=== PATIENT | male | born 1945 | race Caucasian/White ===

== ENCOUNTER → 2017-04-21 | Outpatient (REF) | payer MEDICARE, OTHER ==
[2017-04-22 13:47] LABS: CONTROL LINE HPYORI INT CTR LINE PRESENT
== END ==
LOC: M LAB REF 15:07
PROVIDERS: ATTEND Nurse Practitioner Family
DX: R14.0 Abdominal distension (gaseous) (principal)

== ENCOUNTER 2017-09-17 10:43 | Day surgery (SDC) | payer MEDICARE, BC ==
[~2017-09-17] VITALS: Ht 170.2 cm; Wt 93.0 kg
[~2017-09-17 10:43] MED LIST: ATOR1TAB21 PO; CELE1CAP9 PO; LISI-538 PO; PANT40TA2 PO; PARO20TA3 PO; PROPOFOL 200 MG/20 ML VIAL As Ordered ONE
[2017-09-17] MEDS ORDERED: NS 500 ML IV ONE (11:15)
--- NOTE | 2017-09-17 11:54 | ROOR ---
Patient Name: Kobe Ling Procedure Date: 09/17/2017 11:36 AM Date of : 1945 Age: 72 Room: [facility] Gender: Male Note Status: Finalized Procedure: Total Colonoscopy to Cecum Indications: Screening for colorectal malignant neoplasm Providers: Richie Chin MD Referring MD: MARCELO HERRERA JR, MD Requesting Provider: Medicines: Monitored Anesthesia Care Complications: No immediate complications. Procedure: Pre-Anesthesia Assessment: - The heart rate, respiratory rate, oxygen saturations, blood pressure, adequacy of pulmonary ventilation, and response to care were monitored throughout the procedure. The Colonoscope was introduced through the anus and advanced to the cecum, identified by appendiceal orifice and ileocecal valve. The colonoscopy was performed without difficulty. The patient tolerated the procedure well. The quality of the bowel preparation was excellent. Findings: The perianal and digital rectal examinations were normal. Non-bleeding internal hemorrhoids were found during retroflexion. The hemorrhoids were small and Grade I (internal hemorrhoids that do not prolapse). The exam was otherwise without abnormality on direct and retroflexion views. Impression: - Non-bleeding internal hemorrhoids. - The examination was otherwise normal on direct and retroflexion views. - No specimens collected. - The exam was otherwise normal to the cecum. Recommendation: - Patient has a contact number available for emergencies. The signs and symptoms of potential delayed complications were discussed with the patient. Return to normal activities tomorrow. Written discharge instructions were provided to the patient. - High fiber diet. - Discharge patient to home. - Continue present medications. - Repeat colonoscopy Repeat for symptoms only. for screening purposes. - Return to referring physician. - The findings and recommendations were discussed with the patient's family. Richie Chin MD Richie Chin MD 09/17/2017 11:53:24 AM This report has been signed electronically. Number of Addenda: 0 Note Initiated On: 09/17/2017 11:36 AM Estimated Blood Loss: Estimated blood loss: none.
[2017-09-17 12:24] VITALS: BP 153/74
== END 2017-09-17 12:27 | disposition home or self-care (01) ==
LOC: M OPP 10:43 → EDSTATUS 11:45 → M OPP 12:27
PROVIDERS: ATTEND Internal Medicine Gastroenterology
DX: Z12.11 Encounter for screening for malignant neoplasm of colon (principal); K64.0 First degree hemorrhoids; I10 Essential (primary) hypertension; E78.5 Hyperlipidemia, unspecified; Z96.652 Presence of left artificial knee joint; Z87.891 Personal history of nicotine dependence; Z79.899 Other long term (current) drug therapy

== ENCOUNTER → 2018-08-11 | Outpatient (REF) | payer MEDICARE, BC ==
[2018-08-11 20:00] LABS: GAMMA GLUTAMYLTRANSPEPTIDASE 126 U/L (15-85)
== END ==
LOC: M LAB REF 17:12
DX: R74.8 Abnormal levels of other serum enzymes (principal)
CPT/HCPCS: 82977

== ENCOUNTER → 2020-11-30 | Outpatient (CLI) | payer MEDICARE, BC ==
[~2020-11-30] MED LIST changes: -PANT40TA2 PO; +PANT40TA29 PO; -PROPOFOL 200 MG/20 ML VIAL As Ordered ONE
== END ==
LOC: M LABSMTC 11:20
PROVIDERS: ATTEND Orthopaedic Surgery
DX: Z01.812 Encounter for preprocedural laboratory examination (principal); Z20.828 Contact with and (suspected) exposure to other viral communicable diseases

== ENCOUNTER → 2021-11-20 | Outpatient (REF) | payer MEDICARE, BC ==
[~2021-11-20] MED LIST changes: -LISI-538 PO; +LISI20TA33 PO
[2021-11-20 17:17] LABS: APPEARANCE, URINE CLEAR (CLEAR); BACTERIA, URINE AUTO NEGATIVE (NEGATIVE); BILIRUBIN, URINE AUTO NEGATIVE (NEGATIVE); BLOOD, URINE BLOOD NEGATIVE (NEGATIVE); COLOR, URINE YELLOW (YELLOW); GLUCOSE, URINE (UA) AUTO NEGATIVE (NEGATIVE); KETONE, URINE AUTO NEGATIVE (NEGATIVE); LEUKOCYTE ESTERASE, URINE AUTO NEGATIVE (NEGATIVE); NITRITE, URINE AUTO NEGATIVE (NEGATIVE); PROTEIN, URINE AUTO NEGATIVE (NEGATIVE); RBC, URINE AUTO 0 /HPF (0-3); SPECIFIC GRAVITY URINE AUTO 1.018 (1.002-1.035); SQUAMOUS EPITHELIAL CELL UR AU 0 /HPF (0-6); UROBILINOGEN, URINE AUTO 0.2 mg/dL (0.0-2.0); WBC, URINE AUTO 0 /HPF (0-3)
== END ==
LOC: M LAB REF 16:34
PROVIDERS: ATTEND Internal Medicine
DX: Z01.818 Encounter for other preprocedural examination (principal)

== ENCOUNTER → 2023-08-19 | Outpatient (REF) | payer MEDICARE, BC ==
[~2023-08-19] MED LIST changes: +CELE0.09 PO; -CELE1CAP9 PO
== END ==
LOC: M LAB REF 12:11
PROVIDERS: ATTEND Internal Medicine
DX: G62.9 Polyneuropathy, unspecified (principal)

== ENCOUNTER → 2024-10-18 | Outpatient (REF) | payer MEDICARE, BC ==
[2024-10-18 18:32] LABS: C REACTIVE PROTEIN QUANTITATIV 0.7 MG/DL (<1.0)
[2024-10-18 18:36] LABS: RHEUMATOID FACTOR QUANT 3.8 IU/ML (<14)
[2024-10-20 13:57] LABS: RNP ANTIBODY <1.0 NEG AI (<1.0 NEG); SM ANTIBODY <1.0 NEG AI (<1.0 NEG); SSA SJOGRENS A <1.0 NEG AI (<1.0 NEG); SSB SJOGRENS B <1.0 NEG AI (<1.0 NEG)
[2024-10-21 12:58] LABS: CYCLIC CITRULLINATED PEPTIDE < 16 UNITS (<20)
[2024-10-21 14:17] LABS: ANA SCREEN, IFA POSITIVE (NEGATIVE)
[2024-10-21 14:23] LABS: ANA PATTERN Nuclear, Speckled (NEGATIVE); ANA TITER 1:40 titer (<1:40)
== END ==
LOC: M LAB REF 17:02
PROVIDERS: ATTEND Internal Medicine Pulmonary Disease
DX: R91.8 Other nonspecific abnormal finding of lung field (principal)

== ENCOUNTER → 2024-12-15 | Outpatient (CLI) | payer MEDICARE, BC | LOC: M PLAIMG 12:56 | PROVIDERS: ATTEND Internal Medicine Pulmonary Disease | DX: R91.8 Other nonspecific abnormal finding of lung field (principal); J84.89 Other specified interstitial pulmonary diseases; J43.9 Emphysema, unspecified; I51.7 Cardiomegaly; J84.10 Pulmonary fibrosis, unspecified; N62 Hypertrophy of breast ==

== ENCOUNTER → 2024-12-28 | Outpatient (REF) | payer MEDICARE, BC ==
[2024-12-28 18:20] LABS: ALBUMIN 3.7 G/DL (3.2-5.2); ALKALINE PHOSPHATASE 153 U/L (40-129); ALT/SGPT 29 U/L (7.0-40); AST/SGOT 29 U/L (<34); BILIRUBIN,DIRECT 0.3 MG/DL (<0.4); BILIRUBIN,TOTAL 0.6 MG/DL (0.3-1.2); BLOOD UREA NITROGEN 24 MG/DL (9-23); CALCIUM LEVEL 9.3 MG/DL (8.3-10.6); CARBON DIOXIDE LEVEL 25 MMOL/L (20-31); CHLORIDE LEVEL 110 MMOL/L (98-107); GLOMERULAR FILTRATION RATE > 60.0 (>42); GLUCOSE, FASTING 72 MG/DL (74-106); POTASSIUM SERUM 4.5 MMOL/L (3.5-5.1); SODIUM LEVEL 142 MMOL/L (136-145); TOTAL PROTEIN 7.3 G/DL (5.7-8.2)
== END ==
LOC: M LAB REF 17:06
PROVIDERS: ATTEND Internal Medicine Pulmonary Disease
DX: J84.112 Idiopathic pulmonary fibrosis (principal)